=== PATIENT | male | born 1970 | race Caucasian/White ===

== ENCOUNTER 2016-10-24 08:30 | Day surgery (SDC) | payer SELFPAY ==
[~2016-10-24] VITALS: Ht 188 cm; Wt 89.3 kg
[~2016-10-24 08:30] MED LIST: LEVAQUIN 5500 MG/TA1 PO; NORCO 325 MG-51 TAB PO; PREDNISONE20 MG PO
[2016-10-24 09:18] VITALS: BP 133/73; PULSE 68; TEMP 97.4
[2016-10-24] MEDS ORDERED: TYLENOL 500MG500 MG PO (09:24)
[2016-10-24 15:35] VITALS: BP 140/84; PULSE 62; TEMP 97.6
[2016-10-24] MEDS ORDERED: NORCO 325 MG-7.1 TAB PO (15:46)
[2016-10-24 15:50] VITALS: BP 136/85; PULSE 60
[2016-10-24 15:54] VITALS: TEMP 98
[2016-10-24 16:05] VITALS: BP 160/77; PULSE 81
== END 2016-10-24 16:33 | disposition home or self-care (01) ==
LOC: SDCO 08:30
DX: K42.9 Umbilical hernia without obstruction or gangrene (principal); K40.20 Bilateral inguinal hernia, without obstruction or gangrene, not specified as recurrent
CPT/HCPCS: A4315; C1781; E0710; J0690; J1100; J1885; J2270; J2405; J2704; J3010; J7120

== ENCOUNTER 2017-09-28 21:34 | Emergency (ER) | payer SELFPAY ==
[~2017-09-28] VITALS: Ht 188 cm; Wt 90.9 kg
[~2017-09-28 21:34] MED LIST changes: +NORCO 325 MG-7.1 TAB PO; +TYLENOL 500MG500 MG PO
[2017-09-28 21:37] VITALS: TEMP 97.5
[2017-09-28 22:00] LABS: BASO % 0.1 % (0.0-2.0); EOS # 0.3 (0.0-0.7); EOS % 2.3 % (0-4.0); GRAN # 9.8 (1.4-6.5); GRAN % 69.5 % (42.2-75.2); HEMATOCRIT 49.6 % (42.0-52.0); HEMOGLOBIN 16.9 g/dl (13.5-18.0); LYMPH % 21.3 % (20.0-51.0); MEAN CELL VOLUME 89 fl (80.0-100.0); MEAN CORPUSCULAR HEMOGLOBIN 30 pg (27.0-31.0); MEAN CORPUSCULAR HGB CONC 34 g/dl (33.0-37.0); MEAN PLATELET VOLUME 10.8 fl (7.4-10.4); MONO # 0.9 (0.1-0.6); MONO % 6.4 % (1.7-9.3); PLATELET COUNT 225 K/mm3 (130-400); RED BLOOD COUNT 5.57 M/mm3 (4.20-5.60); WHITE BLOOD COUNT 14.2 K/mm3 (4.8-10.8)
[2017-09-28 22:10] LABS: ADJUSTED CALCIUM 9.4 mg/dL (8.4-10.2); ALBUMIN 4.4 gm/dL (3.5-5.0); BILIRUBIN,TOTAL 1.1 mg/dL (0.0-1.0); CALCIUM 9.7 mg/dL (8.4-10.2); CREATININE, serum 1.02 mg/dL (0.66-1.25); POTASSIUM 3.4 mmol/L (3.4-5.0); TOTAL PROTEIN 7.7 gm/dL (6.4-8.2)
[2017-09-29] MEDS ORDERED: CARAFATE 1GM1 G PO (00:14)
[2017-09-29] MEDS ORDERED: PROTONIX 40MG T40 MG PO (00:14)
[2017-09-29 00:30] VITALS: BP 161/89; PULSE 76
== END 2017-09-29 00:32 | disposition home or self-care (01) ==
LOC: COL.ER 21:34
PROVIDERS: Emergency Medicine
DX: K29.90 Gastroduodenitis, unspecified, without bleeding (principal); F17.210 Nicotine dependence, cigarettes, uncomplicated; Z98.818 Other dental procedure status; Z98.890 Other specified postprocedural states
CPT/HCPCS: C9113; J2405; J2765; J3010; J7030; Q9967